=== PATIENT | male | born 1960 | race Caucasian/White ===

== ENCOUNTER → 2017-08-31 | Outpatient (CLI) | payer BC ==
--- NOTE | 2017-08-31 14:34 | Diagnostic Imaging Report ---
PROCEDURE:US GALLBLADDER COMPARISON:None. INDICATIONS:Gallbladder Disease FINDINGS: LIVER: Size:17.6 cm in the right nidclavicular line, normal Appearance:Normal echogenicity, smooth contour Mass:No focal masses GALLBLADDER: Stones/Sludge:None Appearance:No wall thickening, pericholecystic fluid or hydrops. Sonographic Cao's Sign:Negative BILE DUCTS: Intrahepatic Ducts:No dilation Extrahepatic Ducts:Common bile duct measures 0.4 cm, no dilatation. PANCREAS: Visualized portions of the neck and proximal body are normal. RIGHT KIDNEY: Size:11.4 x 5.2 x 4.9 cm in length Echogenicity:Normal Collecting System:No hydronephrosis Stone:None Cyst/Mass:None VESSELS: Aorta:Visualized portions are normal. Inferior Vena Cava:Visualized portions are normal. Main Portal Vein:0.9 cm, normal size with hepatopedal flow. FREE FLUID: No ascites or pleural effusions. CONCLUSION: 1. Mildly enlarged liver. 2. Otherwise, normal right upper quadrant ultrasound. Dictated by: Hiram Rossi M.D. on 08/31/2017 at 14:35 Electronically approved by: Hiram Rossi M.D. on 08/31/2017 at 14:35
== END ==
LOC: US 12:32
PROVIDERS: ATTEND Internal Medicine
DX: R10.11 Right upper quadrant pain (principal); K80.20 Calculus of gallbladder without cholecystitis without obstruction
CPT/HCPCS: 76705

== ENCOUNTER → 2017-10-05 | Outpatient (CLI) | payer BC ==
[~2017-10-05] MED LIST: SINCALIDE 3 MCG/VIAL INJ ONE
--- NOTE | 2017-10-05 16:46 | Diagnostic Imaging Report ---
Hepatobiliary Scan with Gallbladder Ejection Fraction Clinical information: RUQ abdominal pain x 6 weeks Technique: Following intravenous administration of 7.5 millicuries of Tc-99m mebrofenin, dynamic images of the abdomen in the anterior projection were obtained through 50 minutes. Sincalide (CCK analog) 2.3 micrograms was administered intravenously over 30 minutes with additional imaging for determination of gallbladder ejection fraction. Discussion: Perfusion of the liver is normal. Extraction of tracer by the liver parenchyma is normal. Tracer appears promptly within the biliary tract. The gallbladder begins to fill at 38 minutes post injection of tracer and fills adequately. Tracer is seen in the small bowel by 17 minutes. There is no contractile response by the gallbladder to the pharmacologic dose of sincalide. No emptying of the gallbladder occurs during the 30 minute infusion. Impression: 1. Filling of the gallbladder excludes acute cystic duct obstruction/acute cholecystitis. 2. The gallbladder ejection fraction is undefined as there is no emptying of the gallbladder during the infusion of sincalide. This absence of a contractile response to sincalide supports the clinical diagnosis of chronic cholecystitis/gallbladder dyskinesia. Signed by: Dr. Chandni Billings M.D. on 10/05/2017 4:42 PM
== END ==
LOC: NM 11:19
PROVIDERS: ATTEND Internal Medicine
DX: K81.1 Chronic cholecystitis (principal)
CPT/HCPCS: 78227; A9537; J2805

== ENCOUNTER → 2017-10-31 | Day surgery (SDC) | payer BC ==
[~2017-10-31] MED LIST changes: +BUPIVACAINE 0.25%/EPI 30ML SDV INJ ONE; +DEXAMETHASONE SOD PHOS INJ 4 MG/ML VIAL ONE; +DIOVAN320 MG PO; +FENTANYL CITRATE/PF 100MCG/2 ML INJ ONE; +HYDROCODONE/APAP 10MG-325MG TAB ONE; +KETOROLAC TROMETHAMINE 30 MG/ML VIAL ONE; +MIDAZOLAM HCL 2 MG/2 ML VIAL ONE; +ONDANSETRON HCL INJ 2 MG/ML VIAL ONE; +PROPOFOL IV EMULSION 10 MG/ML 20 ML VIAL ONE; +ROCURONIUM BROMIDE 10 MG/ML 5ML VIAL ONE; +SEVOFLURANE INHAL SOLN 250 ML PEN BTL ONE; -SINCALIDE 3 MCG/VIAL INJ ONE; +ZOCOR PO
--- OUTSIDE RECORDS SUMMARY | 2017-10-31 10:22 | XMS REPORT ---
Author Author [facility] Address Unknown Phone Unavailable Care Team Providers Care Scrap Carrier Name Role Phone LEONILA GRAF Unavailable Unavailable Problems This patient has no known problems. Allergies, Adverse Reactions, Alerts This patient has no known allergies or adverse reactions. Medications This patient has no known medications. Results Test Description Test Time Test Comments Text Results Atomic Results Result Comments HEPTOBILIARY W PHARM [place] [address] Patient Name: MAXIM BRYANT MR #: [id number] : 1960 Age/Sex: 56/M Req #: [id number] [facility] [place]: Ordered by: LEONILA GRAF MD Report #: [id number] Location: [place] Room/Bed: Procedure: [id number] NM/HEPTOBILIARY W PHARM Exam Date: 10/05/17 Exam Time: 1330 REPORT STATUS: Signed Hepatobiliary Scan with Gallbladder Ejection Fraction Clinical information: RUQ abdominal pain x 6 weeks Technique: Following intravenous administration of 7.5 millicuries of Tc-99m mebrofenin, dynamic images of the abdomen in the anterior projection were obtained through 50 minutes. Sincalide (CCK analog) 2.3 micrograms was administered intravenously over 30 minutes with additional imaging for determination of gallbladder ejection fraction. Discussion: Perfusion of the liver is normal. Extraction of tracer by the liver parenchyma is normal. Tracer appears promptly within the biliary tract. The gallbladder begins to fill at 38 minutes post injection of tracer and fills adequately. Tracer is seen in the small bowel by 17 minutes. There is no contractile response by the gallbladder to the pharmacologic dose of sincalide. No emptying of the gallbladder occurs during the 30 minute infusion. Impression: 1. Filling of the gallbladder excludes acute cystic duct obstruction/acute cholecystitis. 2. The gallbladder ejection fraction is undefined as there is no emptying of the gallbladder during the infusion of sincalide. This absence of a contractile response to sincalide supports the clinical diagnosis of chronic cholecystitis/gallbladder dyskinesia. Signed by: Dr. Asher Billings M.D. on 10/05/2017 4:42 PM Dictated By: ASHER BILLINGS MD 41 Transcribed By: MEGHANN on 10/05/171641 COPY TO: LEONILA GRAF MD US GALLBLADDER [place] [address] Patient Name: MAXIM BRYANT MR #: [id number] : 1960 Age/Sex: 56/M Req #: [id number] Adm Physician: Ordered by: LEONILA GRAF MD Report #: [id number] Location: Room/Bed: Procedure: [id number] US/US GALLBLADDER Exam Date: 08/31/17 Exam Time: 1430 REPORT STATUS: Signed PROCEDURE: US GALLBLADDER COMPARISON : None. INDICATIONS: Gallbladder Disease FINDINGS: LIVER: Size: 17.6 cm in the right nidclavicular line, normal Appearance: Normal echogenicity, smooth contour Mass: No focal masses GALLBLADDER : Stones/Sludge: None Appearance: No wall thickening, pericholecystic fluid or hydrops. Sonographic Cao's Sign: Negative BILE DUCTS: Intrahepatic Ducts: No dilation Extrahepatic Ducts: Common bile duct measures 0.4 cm, no dilatation. PANCREAS: Visualized portions of the neck and proximal body are normal. RIGHT KIDNEY: Size: 11.4 x 5.2 x 4.9 cm in length Echogenicity: Normal Collecting System: No hydronephrosis Stone: None Cyst/Mass: None VESSELS: Aorta: Visualized portions are normal. Inferior Vena Cava: Visualized portions are normal. Main Portal Vein: 0.9 cm, normal size with hepatopedal flow. FREE FLUID: No ascites or pleural effusions. CONCLUSION: 1. Mildly enlarged liver. 2. Otherwise, normal right upper quadrant ultrasound. Dictated by: Sherif Davis M.D. on 08/31/2017 at 14:35 Electronically approved by: Sherif Davis M.D. on 08/31/2017 at 14:35 Dictated By: SHERIF DAVIS MD [id number] Transcribed By: LORRAINE on 08/31/17 1435 COPY TO: LEONILA GRAF MD
[2017-10-31 11:23] LABS: BILIRUBIN,URINE NEGATIVE (NEGATIVE); CLARITY,URINE CLEAR (CLEAR); COLOR,URINE YELLOW (YELLOW); KETONES,URINE NEGATIVE (NEGATIVE); LEUKOCYTE ESTERASE ,URINE NEGATIVE (NEGATIVE); NITRITE,URINE NEGATIVE (NEGATIVE); PROTEIN,URINE DIPSTICK NEGATIVE (NEGATIVE); URINE UROBILINOGEN 0.2 mg/dL (0.2 - 1)
[2017-10-31 11:25] LABS: BASOPHILS % 0.6 % (0.0-1.0); EOSINOPHILS # (AUTO) 0.2 (0.0-0.4); EOSINOPHILS % 3.2 % (0.0-6.0); HEMATOCRIT 42.8 % (38.2-49.6); HEMOGLOBIN 14.8 g/dL (14.0-18.0); LYMPHOCYTES # (AUTO) 1.4 (1.0-3.2); LYMPHOCYTES % 21.7 % (18.0-39.1); MEAN CORPUSCULAR HEMOGLOBIN 28.4 pg (28-32); MEAN CORPUSCULAR HGB CONC 34.6 g/dL (31-35); MEAN CORPUSCULAR VOLUME 82.1 fL (81-99); MONOCYTES # (AUTO) 0.5 (0.2-0.8); MONOCYTES % 7.4 % (4.4-11.3); NEUTROPHILS # (AUTO) 4.4 (2.1-6.9); NEUTROPHILS % 66.9 % (38.7-80.0); PLATELET COUNT 225 x10e3/uL (140-360); RED BLOOD COUNT 5.21 x10e6/uL (4.3-5.7); RED CELL DISTRIBUTION WIDTH 13.5 % (11.7-14.4)
[2017-10-31 11:40] LABS: ANION GAP 11.7 mmol/L (8-16); BLOOD UREA NITROGEN 20 mg/dL (7-26); BUN/CREATININE RATIO 24 (6-25); CALCIUM 9.7 mg/dL (8.4-10.2); CARBON DIOXIDE 26 mmol/L (22-29); CHLORIDE 104 mmol/L (98-107); CREATININE, SERUM 0.84 mg/dL (0.72-1.25); EST GLOMERULAR FILTRATION RATE > 60 ML/MIN (60-); GLUCOSE 101 mg/dL (74-118); POTASSIUM 3.7 mmol/L (3.5-5.1); SODIUM 138 mmol/L (136-145)
--- NOTE | 2017-10-31 15:09 | Operative Report ---
DATE OF PROCEDURE: October 31, 2017 PREOPERATIVE DIAGNOSIS: Biliary dyskinesia. POSTOPERATIVE DIAGNOSIS: Biliary dyskinesia. OPERATION PERFORMED: Laparoscopic cholecystectomy. T[employer]ATING [employer] SUPERVISOR: Dr. Richi Esteban and WILLARD Christine. ANESTHESIA: General. COMPLICATIONS: None. ESTIMATED BLOOD LOSS: Minimal. DESCRIPTION OF PROCEDURE: With the patient lying in bed in the supine position under good general endotracheal anesthesia, the abdomen was prepped with Betadine solution and draped in the usual manner. A Veress needle was introduced into the umbilicus. A pneumoperitoneum was established without any difficulty. An 11-mm trocar was placed into the umbilicus and a 10 mm video laparoscope was placed into the intra-abdominal cavity. Under direct vision, three 5-mm trocars were placed in the right subcostal region. Video laparoscopy at this point revealed the gallbladder to be covered up with adhesions all the way to the top. The rest the abdominal exploration was otherwise within normal limits. All of the adhesions to the gallbladder were then slowly and carefully taken down. The peritoneum overlying the neck of the gallbladder was then opened and the cystic duct was identified. The cystic duct was followed to its junction with the common duct. The cystic duct was then circumferentially dissected away from the common duct, doubly clipped and divided. The cystic artery was similarly doubly clipped and divided. Gallbladder was then slowly and carefully taken off the liver bed using the cautery scissors and perfect hemostasis was ascertained. The gallbladder was placed in a pouch and removed through the umbilicus without any difficulty. Video laparoscopy was then again carried out. The liver bed was found to be perfectly dry. All of the excess fluid was aspirated. The pneumoperitoneum was evacuated, and all the trocars were removed under direct vision. The midline fascia at the umbilicus was closed with 0 PDS. All layers were infiltrated on the way out with a solution of 0.25% Marcaine. Subcutaneous tissue was approximated with 3-0 Vicryl and the skin was closed with subcuticular 5-0 Vicryl. Benzoin, Steri-Strips and Band-Aids were applied. The sponge, lap and needle count was correct. Patient tolerated the procedure well, and returned to the recovery room in stable condition. Job#: [id number]
== END | disposition home or self-care (01) ==
LOC: OR 10:20
PROVIDERS: ATTEND Surgery
DX: K81.1 Chronic cholecystitis (principal); K82.8 Other specified diseases of gallbladder; I10 Essential (primary) hypertension; R00.1 Bradycardia, unspecified
CPT/HCPCS: 36415; 47562; 80048; 81003; 85025; 88304; 93005; C1766; J1100; J1885; J2250; J2405